=== PATIENT | female | born 1965 | race Caucasian/White ===

== ENCOUNTER 2020-02-01 12:36 | Emergency (ER) | payer MEDICAID, SELFPAY ==
--- NOTE | ~2020-02-01 | XR_ITS ---
EXAMINATION: XR chest 2V EXAM DATE: 02/01/2020 13:37 INDICATION: Dry cough. TECHNIQUE: Frontal and lateral projections of the chest obtained and reviewed. Comparison is made to prior examination from 2013. FINDINGS: The lungs are clear. There are no pleural effusions. The cardiomediastinal silhouette is within normal limits. There is no pneumothorax suspected. Some bridging lower thoracic endplate ost eophytes. IMPRESSION: No acute cardiopulmonary findings. Reviewed, dictated and finalized at location A.
[2020-02-01 12:43] VITALS: BP 145/84; PULSE 76; RESP 18; TEMP 36.7; O2SAT 100
--- NOTE | 2020-02-01 13:26 | ED.URI ---
HPI - URI/Sore Throat General Chief Complaint: Upper Respiratory Infection Stated Complaint: cough/ear pain pressure/sore throat Time Seen by Provider: 02/01/20 13:26 Source: patient Mode of arrival: ambulatory Limitations: no limitations History of Present Illness HPI Narrative: Ingrid Monae is a 55 yo female with a PMH of anxiety, migraines, hypothyroid, who comes to [facility] care with 3 days of dry cough, chest wall pain, right ear pain, feels generally unwell Related Data Home Medications Medication Instructions Recorded Confirmed cetirizine 10 mg tablet 10 mg PO DAILY 11/14/19 02/01/20 cholecalciferol (vitamin D3) 50 50 mcg PO DAILY 11/14/19 02/01/20 mcg (2,000 unit) capsule folic acid 1 mg tablet 1 mg PO DAILY 11/14/19 02/01/20 levothyroxine 25 mcg tablet 25 mcg PO DAILY 11/14/19 02/01/20 naproxen 500 mg tablet 500 mg PO BID 11/14/19 02/01/20 ranitidine HCl 150 mg tablet 150 mg PO DAILY 11/14/19 02/01/20 sumatriptan succinate 100 mg tablet See Rx Instructions PO .COMPLEX 11/14/19 02/01/20 atomoxetine 25 mg capsule 25 mg PO ONCE 11/22/19 02/01/20 Allergies Allergy/AdvReac Type Severity Reaction Status Date / Time buspirone Allergy Severe Tremors Verified 11/14/19 13:43 citalopram Allergy Intermediate UNKNOWN Verified 11/14/19 13:43 levofloxacin Allergy Intermediate PAIN IN Verified 11/14/19 13:43 TENDONS bupropion Allergy Unknown migraines Verified 11/14/19 13:43 codeine Allergy Unknown Unknown Verified 11/14/19 13:43 diphenhydramine Allergy Unknown hangover Verified 11/14/19 13:43 [From Unisom feeling (diphenhydramine)] doxycycline Allergy Unknown Unknown Verified 11/14/19 13:43 duloxetine Allergy Unknown unknown Verified 11/14/19 13:43 gabapentin Allergy Unknown Unknown Verified 11/14/19 13:43 haloperidol Allergy Unknown incoherent Verified 11/14/19 13:43 for a week nitrofurantoin Allergy Unknown Unknown Verified 11/14/19 13:43 pregabalin Allergy Unknown Unknown Verified 11/14/19 13:43 quetiapine Allergy Unknown Unknown Verified 11/14/19 13:31 escitalopram AdvReac Unknown tremors Verified 11/14/19 13:31 morphine AdvReac Unknown vomiting Verified 11/14/19 13:31 FLUOXETINE HCL Allergy Unknown unknown Uncoded 11/14/19 13:31 KETOROLAC TROMETHAMINE Allergy Unknown Unknown Uncoded 11/14/19 13:31 PAROXETINE HCL Allergy Unknown tremors Uncoded 11/14/19 13:31 SERTRALINE HCL Allergy Unknown Unknown Uncoded 11/14/19 13:31 Review of Systems Review of Systems: Narrative: CONSTITUTIONAL: Denies fever, chills, sweats. EYES: Denies visual changes, redness, discharge. ENT: Denies rhinorrhea, congestion, has sore throat, has right otalgia. CARDIOVASCULAR: Denies chest pain, palpitations, edema. RESPIRATORY: Denies dyspnea, wheezing, has dry cough GASTROINTESTINAL: Denies abdominal pain, nausea, vomiting, diarrhea. GENITOURINARY: Denies dysuria, hematuria, abnormal discharge SKIN: Denies rash or itching. NEUROLOGIC: Denies numbness, or focal weakness. PSYCHIATRIC: Denies anxiety or depression. [facility] Past Medical History Medical History Allergies Anxiety Arthritis Fibromyalgia Gallbladder disorder GERD (gastroesophageal reflux disease) Migraine Neuropathy Osteoarthritis Spinal stenosis Spondylosis Thyroid disorder Varicose veins of both lower extremities Surgical History Surgical History H/O knee surgery H/O tubal ligation History of carpal tunnel release Hx of cholecystectomy Family History Family History Grandparent Heart failure Social History Social History Smoking packs per day: 0.25 Smoking cigarettes per day: 5.0 Years smoked: 6 Smoking pack-years: 1.50 Smoking status: Current every day smoker Alcohol intake: never Substance use: never Gender identity (if
== END 2020-02-01 14:30 | disposition home or self-care (01) ==
PROVIDERS: Emergency Provider Nurse Practitioner; PCP Family Medicine
DX: R05 Cough (principal); H92.01 Otalgia, right ear; E03.9 Hypothyroidism, unspecified; F41.9 Anxiety disorder, unspecified; M19.90 Unspecified osteoarthritis, unspecified site; M79.7 Fibromyalgia; K21.9 Gastro-esophageal reflux disease without esophagitis; G62.9 Polyneuropathy, unspecified; E07.9 Disorder of thyroid, unspecified; F17.210 Nicotine dependence, cigarettes, uncomplicated
CPT/HCPCS: 71046; 99213; G0463

== ENCOUNTER 2020-11-15 12:01 | Observation (INO) | payer MEDICARE, MEDICAID, SELFPAY ==
[2020-11-15] VITALS (14 sets, daily range): BP systolic 119–157; BP diastolic 77–97; PULSE 78–112; RESP 15–22; TEMP 36.3–39.2; O2SAT 95–97; BMI 27.7
--- NOTE | ~2020-11-15 | US_ITS ---
EXAMINATION: US venous doppler LE EXAM DATE: 11/16/2020 09:09 INDICATION: Shortness of breath and elevated d-dimer. TECHNIQUE: Multiple grayscale, color flow and Doppler images of the lower extremity deep venous syste ms bilaterally were obtained and reviewed. There is no prior study for comparison. FINDINGS: Right side: The right common femoral, femoral and profunda veins demonstrate normal color flow, respi ratory variation, augmentation and compressibility. Compressibility, color flow confirmed within the right popliteal, posterior tibial, peroneal, and greater saphenous veins. Left side: The left common femoral, femoral and profunda veins demonstrate normal color flow, respira tory variation, augmentation and compressibility. Compressibility, color flow confirmed within the l eft popliteal, posterior tibial, peroneal, and greater saphenous veins. IMPRESSION: No lower extremity deep venous thrombosis bilaterally. Reviewed, dictated and finalized at location A.
--- NOTE | ~2020-11-15 | NM_ITS ---
EXAMINATION: NM pulmonary perfusion DATE: 11/16/2020 09:00 INDICATION: Shortness of breath. TECHNIQUE: 5.023 mCi Tc-99m MAA was administered intravenously for perfusion images. Scintigraphic i mages of the chest were obtained. COMPARISON: Chest single view 11/15/2020 FINDINGS: Perfusion images show small defects in left upper lobe and left lower lobe. IMPRESSION: 1. Pulmonary embolism absent (very low probability). Reviewed, dictated and finalized at location A.
--- NOTE | ~2020-11-15 | XR_ITS ---
XR pelvis 1-2V DATE: 11/17/2020 17:11 INDICATION: Bilateral hip pain TECHNIQUE: AP pelvis, one view COMPARISON: None FINDINGS: There is diffuse osteopenia. The pubic symphysis and sacroiliac joints are intact. Hip joint spaces are symmetric and relatively p reserved. No pelvic fracture or bone destruction is evident. No fracture or dislocation, avascular necrosis or bone destruction is noted at either hip. IMPRESSION: No significant abnormality Reviewed, dictated and finalized at location A. IMPRESSION: No significant abnormality
--- NOTE | ~2020-11-15 | XR_ITS ---
EXAMINATION: XR chest 2V EXAM DATE: 11/15/2020 13:52 INDICATION: Dyspnea, hives. Swelling of face. TECHNIQUE: Frontal and lateral projections of the chest obtained and reviewed. Comparison is made to prior examination from 02/01/2020. FINDINGS: The lungs are clear. There are no pleural effusions. The cardiomediastinal silhouette is within normal limits. There is no pneumothorax suspected. The bones and soft tissues are unremarkab le. IMPRESSION: No acute cardiopulmonary findings. Reviewed, dictated and finalized at location A.
--- NOTE | ~2020-11-15 | CT_ITS ---
EXAMINATION: CT facial bones wo con DATE: 11/17/2020 16:49 INDICATION: Facial edema. Frontal headache. TECHNIQUE: Computed tomography (CT) of the facial bones and maxillofacial region was performed withou t intravenous contrast. Automated exposure control and iterative reconstruction technique were employ ed. The dose-length product was 271.73 mGy-cm. COMPARISON: None. FINDINGS: The orbits are normal. There are old fracture deformities of the nasal bones. No acute frac ture. There is rightward deviation of the nasal septum. There is mild mucosal thickening in the maxil maki sinuses. There is a trace right mastoid effusion. There is moderate cervical spondylosis. IMPRESSION: 1. No acute fracture. Reviewed, dictated and finalized at location A. IMPRESSION: 1. No acute fracture.
--- NOTE | ~2020-11-15 | XR_ITS ---
EXAMINATION: XR chest PICC line INDICATION: PICC insertion TECHNIQUE: AP view of the chest is obtained. COMPARISON: 1347 hours FINDINGS: A right upper extremity PICC has been inserted which ends with its tip in the distal superi or vena cava. The lungs are free of acute opacities. There is no pleural effusion or pneumothorax. Th e cardiomediastinal silhouette is normal. IMPRESSION: 1. Right upper extremity PICC insertion, otherwise no change. Reviewed, dictated and finalized at location A.
--- NOTE | ~2020-11-15 | XR_ITS ---
XR ankle LT min 3V DATE: 11/17/2020 17:11 INDICATION: Left ankle pain; no injury TECHNIQUE: 3 views COMPARISON: None FINDINGS: Mild plantar and posterior calcaneal enthesopathy. Mild osteopenia. No fracture or dislocation of the ankle or disruption of the ankle mortise is evident. No periosteal reaction or bone destruction. IMPRESSION: Mild plantar and posterior calcaneal enthesopathy Reviewed, dictated and finalized at location A.
--- NOTE | ~2020-11-15 | CT_ITS ---
EXAMINATION: CT brain wo con DATE: 11/17/2020 16:48 INDICATION: Altered mental status. Headache. TECHNIQUE: Computed tomography (CT) of the head was performed without intravenous contrast. The mA wa s adjusted according to patient size. Iterative reconstruction technique was employed. The dose-lengt h product was 605.33 mGy-cm. COMPARISON: Head CT 02/02/2017 FINDINGS: There is no intracranial hemorrhage, acute infarction, or abnormal intracranial mass lesion . There are chronic areas of abnormal cortical morphology in the frontal lobes bilaterally. The ventr icles are normal in size. The orbits are normal. The paranasal sinuses are clear. The mastoid air carlos ls are normal. IMPRESSION: 1. 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 Consider brain MRI without and with contrast. Reviewed, dictated and finalized at location A. IMPRESSION: 1. 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 Consider brain MRI without and with contrast.
--- NOTE | 2020-11-15 12:12 | ECG_ITS ---
Measurements Intervals [place] Rate: 100 P: 44 VA: 148 QRS: 18 QRSD: 113 T: 21 QT: 353 QTc: 455 Interpretive Statements SINUS TACHYCARDIA INTRAVENTRICULAR CONDUCTION DELAY DELAYED PRECORDIAL R/S TRANSITION MINIMAL Q WAVES- INFERIOR LEADS BASELINE ARTIFACT- I, II, III, AVR, AVL, AVF, V1-V6 BORDERLINE ECG Electronically Signed On 11-15-2020 14:31:16 CDT by Lawrence Donovan D.O.
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
--- NOTE | 2020-11-15 12:22 | PC.NURSE ---
IV attempt x3 unsuccessful per this RN.
[2020-11-15] MEDS: ALBUTEROL SULFATE NEB 2.5 MG/0.5 ML INH 5 MG INHALATION (12:31)
[2020-11-15] MEDS: IPRATROPIUM BR 0.02% INH SOLN 0.5 MG/2.5 ML VIAL INHALATION (12:31)
[2020-11-15 12:36] LABS: Alveolar/Arterial O2 Gradient 32.7 mmHg; Carboxyhemoglobin 0.6 % THb (0-2.0); Fractional Inspired Oxygen 21 %; HCO3 ABG 19.1 mEq/l (22.0-26.0); Methemoglobin ABG 0.2 %THb (0-1.5); Oxygen Content ABG 17.3 %vol (16.0-22.0); Oxygen Saturation ABG 97.7 % (95.0-100.0); Oxyhemoglobin 96.4 % THb (90.0-100.0); PO2 ABG 88.7 mmHg (80.0-100.0); PO2 FiO2 Ratio Arterial Blood 4.22 %; Reduced Hemoglobin 2.8 %THb (0-5.0); Total Hemoglobin 12.7 g/dL (12.0-18.0)
[2020-11-15 12:38] LABS: Device ROOM AIR; Modified Allen's Test Pass; PCO2 ABG 23.7 mmHg (35.0-45.0); Site Drawn LEFT RADIAL; pH ABG 7.525 (7.350-7.450)
--- NOTE | 2020-11-15 12:42 | PC.NURSE ---
SHONNA Smith at bedside to attempt IV start and lab draw with ultrasound.
[2020-11-15 13:32] LABS: Basophils Percent Auto 0.2 % (0.2-1.2); Hematocrit 33.7 % (37.0-47.0); Hemoglobin 11.7 g/dL (12.0-15.0); Immature Granulocyte Absolute 0.31 K/mm3 (0.00-0.031); Immature Granulocyte Percent A 1.5 % (0-0.5); Lymphocytes Absolute Auto 0.86 K/mm3 (0.9-3.2); Lymphocytes Percent Auto 4.2 % (18.3-44.2); Mean Corpuscular HGB Conc 34.7 g/dl (32-36); Mean Corpuscular Hemoglobin 28.5 pg (26-34); Mean Platelet Volume 8.3 fl (7.4-10.4); Monocytes Absolute Auto 0.7 K/mm3 (0.1-0.6); Monocytes Percent Auto 3.6 % (2.6-8.5); Neutrophils Absolute Auto 18.6 K/mm3 (1.3-6.7); Neutrophils Percent Auto 90.5 % (45.5-73.1); Platelet Count Result 228 k/mm3 (150-375); Red Blood Count 4.11 M/mm3 (4.2-5.4); Red Cell Distribution Width 14.6 % (11.5-14.5); White Blood Count 20.5 K/mm3 (4.5-10.0)
--- NOTE | 2020-11-15 13:32 | PC.NURSE ---
Unable to get IV after several attempts with ultrasound.
[2020-11-15 13:41] LABS: INR 1.2; Prothrombin Time 16.2 Seconds (11.1-14.7)
[2020-11-15 13:42] LABS: Partial Thromboplastin Time 32.4 SECONDS (22.3-36.8)
[2020-11-15 13:44] LABS: D Dimer 1.99 ug/mL (<0.48); Lactic Acid Reflex 0.9 mmol/L (0.7-2.1); Ovalocytes 1+ (NORMAL); Platelet Estimate Adequate (Adequate)
[2020-11-15 13:56] LABS: NT Pro B Type Natriuretic Pept 472 PG/ML (5-100); Troponin I < 0.012 ng/mL (0.000-0.034)
[2020-11-15 14:01] LABS: Alanine Aminotransferase 13 U/L (4-35); Albumin Level 3.8 g/dL (3.5-5.1); Alkaline Phosphatase 89 U/L (38-126); Anion Gap 8 mmol/L (8-16); Aspartate Amino Transferase 16 U/L (14-36); Bilirubin,Total 0.8 mg/dL (0.2-1.3); Blood Urea Nitrogen 14 mg/dL (7-17); Calcium 9.4 mg/dL (8.4-10.2); Carbon Dioxide 22 mmol/L (22-30); Chloride 103 mmol/L (98-107); Estimated CRCL calculation 65 ml/min; Estimated Glomerular Filt Rate > 60; Glucose 136 mg/dL (65-105); Potassium 2.8 mmol/L (3.4-5.0); Sodium 133 mmol/L (137-145)
--- NOTE | 2020-11-15 14:02 | PC.NURSE ---
supervisor concrete stone finishing contacted [facility] to come and initiate PICC line as pt is difficult stick.
--- NOTE | 2020-11-15 14:31 | PC.NURSE ---
[facility] at bedside for PICC line placement
[2020-11-15] MEDS: POTASSIUM CHLORIDE 20 MEQ TABLET 40 MEQ PO (15:18)
[2020-11-15] MEDS: FAMOTIDINE 20 MG/2 ML VIAL IV PUSH (15:18)
[2020-11-15] MEDS: methylPREDNISolone SOD SUCC 125 MG VIAL IV PUSH (15:18)
--- NOTE | 2020-11-15 15:48 | PC.NURSE ---
Liss from CT calls, states that she is unable to do the CTA due to the PICC line peaking and not taking the contrast . States was going to initiate another line, but pt refuses further testing until she gets ativan.
[2020-11-15] MEDS: LORazepam INJ (*CRX) 2 MG/ML VIAL 0.5 MG IV PUSH (15:59)
--- NOTE | 2020-11-15 16:31 | PC.NURSE ---
Admission orders received. Awaiting bed assignment.
[2020-11-15] MEDS: ENOXAPARIN 80 MG/0.8 ML SYRINGE 73 MG SUB-Q (16:42)
--- NOTE | 2020-11-15 17:42 | PC.NURSE ---
Weight verified per bedscale. Dr. Loo made aware. Pt's face appears to have decreased in swelling. Pt awakens easily, is oriented to place but says things like you're trying to trick me and it's a conspiracy .
--- NOTE | 2020-11-15 18:21 | PC.NURSE ---
First set of blood cultures obtained. Continue to await bed assignment. Pt is refusing straight cath urine collection.
--- NOTE | 2020-11-15 18:48 | PC.NURSE ---
2nd set of blood cultures and lactic collected per PICC line.
--- NOTE | 2020-11-15 19:00 | PC.NURSE ---
RN informed during report pt. has been refusing straight catheter and refusing to provide urine sample. Pt. told previous RN that I know what you are up to and I won't allow it.
--- NOTE | 2020-11-15 19:00 | PC.NURSE ---
Assumed care of pt. at this time. Report from SHONNA Villalta
[2020-11-15 19:05] LABS: Lactic Acid Reflex 1.1 mmol/L (0.7-2.1)
[2020-11-15] MEDS: ACETAMINOPHEN 325 MG TABLET 650 MG PO (20:07)
--- NOTE | 2020-11-15 21:59 | ADMGEN ---
This patient, Ingrid Monae, was admitted to 2 Medical Room 259-. Patient/family oriented to hospital policies and general routines including ID bracelet, bed and alarms, visiting hours, pain management, procedures, bathroom and other care routines, personal items, smoking policy, room service/diet, and visiting hours. Information on how to activate the Rapid Response Team has been discussed. Patient/Family are encouraged to report perceived risks to care and to ask questions if they do not understand what they are told or what they should do.
[2020-11-15] MEDS: CENTRAL LINE FLUSH 10 ML IV PUSH (22:45)
[2020-11-15] MEDS: LACTATED RINGERS 1,000 ML 125 ML IV CONT (22:45)
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
[2020-11-16] VITALS (14 sets, daily range): BP systolic 104–122; BP diastolic 71–81; PULSE 62–89; RESP 18–22; TEMP 36.1–37; O2SAT 97–100
[2020-11-16] MEDS: methylPREDNISolone SOD SUCC 125 MG VIAL 60 MG IV PUSH ×2 (00:47→05:08)
[2020-11-16 02:15] LABS: Anion Gap 9 mmol/L (8-16); Blood Urea Nitrogen 19 mg/dL (7-17); Calcium 9.1 mg/dL (8.4-10.2); Carbon Dioxide 23 mmol/L (22-30); Chloride 105 mmol/L (98-107); Estimated CRCL calculation 55 ml/min; Estimated Glomerular Filt Rate 58; Glucose 280 mg/dL (65-105); Potassium 3.3 mmol/L (3.4-5.0); Sodium 137 mmol/L (137-145)
[2020-11-16] MEDS: IPRATROPIUM BR 0.02% INH SOLN 0.5 MG/2.5 ML VIAL INHALATION ×2 (02:40→10:06)
[2020-11-16] MEDS: ALBUTEROL SULFATE NEB 2.5 MG/0.5 ML INH INHALATION ×2 (02:40→10:06)
[2020-11-16 05:05] LABS: Basophils Percent Auto 0.1 % (0.2-1.2); Hematocrit 33.3 % (37.0-47.0); Hemoglobin 11.1 g/dL (12.0-15.0); Immature Granulocyte Absolute 0.16 K/mm3 (0.00-0.031); Immature Granulocyte Percent A 1.2 % (0-0.5); Lymphocytes Absolute Auto 0.63 K/mm3 (0.9-3.2); Lymphocytes Percent Auto 4.8 % (18.3-44.2); Mean Corpuscular HGB Conc 33.3 g/dl (32-36); Mean Corpuscular Volume 83.9 fl (80-100); Mean Platelet Volume 9.3 fl (7.4-10.4); Monocytes Absolute Auto 0.5 K/mm3 (0.1-0.6); Monocytes Percent Auto 3.7 % (2.6-8.5); Neutrophils Absolute Auto 11.8 K/mm3 (1.3-6.7); Neutrophils Percent Auto 90.2 % (45.5-73.1); Platelet Count Result 235 k/mm3 (150-375); Red Blood Count 3.97 M/mm3 (4.2-5.4); Red Cell Distribution Width 14.5 % (11.5-14.5); White Blood Count 13.1 K/mm3 (4.5-10.0)
[2020-11-16] MEDS: LEVOTHYROXINE SODIUM 25 MCG TABLET PO (05:07)
[2020-11-16] MEDS: CENTRAL LINE FLUSH 10 ML IV PUSH ×2 (05:09→20:22)
[2020-11-16 05:27] LABS: Anion Gap 7 mmol/L (8-16); Blood Urea Nitrogen 21 mg/dL (7-17); Calcium 9.6 mg/dL (8.4-10.2); Carbon Dioxide 25 mmol/L (22-30); Chloride 106 mmol/L (98-107); Estimated CRCL calculation 55 ml/min; Estimated Glomerular Filt Rate 58; Glucose 196 mg/dL (65-105); Magnesium 2.2 mg/dL (1.6-2.3); Potassium 3.5 mmol/L (3.4-5.0); Sodium 138 mmol/L (137-145)
[2020-11-16 05:50] LABS: Add Urine Microscopic? YES; Appearance Urine Cloudy (Clear); Bacteria Urine Trace /hpf; Bilirubin Urine Negative (Negative); Blood Urine Negative (Negative); Color Urine Yellow (Yellow); Glucose Urine UA Negative (Negative); Ketones Urine Negative (Negative); Leukocyte Esterase Ur Trace LEU/UL (NEGATIVE); Mucus Urine Few /lpf; Nitrate Urine Negative (Negative); Protein Urine 2+ mg/dL (Negative); RBC Urine 0-2 /hpf (0-2); Specific Grav Ur 1.028 (1.001-1.035); Squamous Epithelial Cell Urine Few /hpf (Few); Urobilinogen Urine Negative mg/dL (<2.0); WBC Urine 0-3 /hpf (0-3)
[2020-11-16 06:04] LABS: Barbiturate Screen Urine Negative (Negative); Benzodiazepines Screen Urine Negative (Negative)
[2020-11-16 06:10] LABS: Cannabinoid Screen Urine Positive (Negative); Cocaine Screen Urine Negative (Negative); Methadone Screen Urine Negative (Negative); Opiate Screen Urine Negative (Negative); Phencyclidine Screen Urine Negative (Negative)
[2020-11-16 06:22] LABS: Amphetamine Screen Urine Positive (Negative)
[2020-11-16 06:40] LABS: Thyroid Stimulating Hormone Reflex 0.241 uIU/mL (0.465-4.68)
[2020-11-16 07:26] LABS: Free T4 Free Thyroxine Reflex 1.25 ng/dL (0.78-2.19)
[2020-11-16] MEDS: CHOLECALCIFEROL 1,000 UNITS TABLET 2000 UNITS PO (10:02)
[2020-11-16] MEDS: FAMOTIDINE 20 MG TABLET PO (10:03)
[2020-11-16] MEDS: POLYMYXIN/TRIMETHOPRIM OPHTH 10 ML DROPS 1 DROP EACH EYE ×2 (10:03→20:21)
[2020-11-16] MEDS: LORATADINE 10 MG TABLET PO (10:03)
[2020-11-16] MEDS: NAPROXEN 500 MG TABLET PO ×2 (10:03→20:21)
[2020-11-16] MEDS: FOLIC ACID 1 MG TABLET PO (10:03)
[2020-11-16] MEDS: TOPIRAMATE 25 MG TABLET 50 MG PO ×2 (10:04→20:21)
[2020-11-16] MEDS: LACTATED RINGERS 1,000 ML 125 ML IV CONT ×2 (11:26→20:27)
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
[2020-11-16] MEDS: ALPRAZolam (*CRX) 0.5 MG TABLET PO ×2 (13:10→20:27)
[2020-11-16] MEDS: POTASSIUM CHLORIDE 20 MEQ TABLET PO (14:56)
[2020-11-16] MEDS: ENOXAPARIN 40 MG/0.4 ML SYRINGE SUB-Q (17:29)
[2020-11-16] MEDS: hydrOXYzine HCL 25 MG TABLET PO (17:36)
[2020-11-16] MEDS: ZOLPIDEM TARTRATE (*CRX) 5 MG TABLET 10 MG PO (22:44)
[2020-11-17] VITALS (10 sets, daily range): BP systolic 125–128; BP diastolic 64–84; PULSE 65–78; RESP 16–22; TEMP 36.1–36.4; O2SAT 97–100
[2020-11-17] MEDS: CENTRAL LINE FLUSH 20 ML IV PUSH (04:33)
[2020-11-17 04:40] LABS: Basophils Percent Auto 0.2 % (0.2-1.2); Hematocrit 31.9 % (37.0-47.0); Hemoglobin 10.7 g/dL (12.0-15.0); Immature Granulocyte Absolute 0.17 K/mm3 (0.00-0.031); Lymphocytes Absolute Auto 1.08 K/mm3 (0.9-3.2); Lymphocytes Percent Auto 6.4 % (18.3-44.2); Mean Corpuscular HGB Conc 33.5 g/dl (32-36); Mean Corpuscular Hemoglobin 28.3 pg (26-34); Mean Corpuscular Volume 84.4 fl (80-100); Mean Platelet Volume 9.5 fl (7.4-10.4); Monocytes Absolute Auto 0.5 K/mm3 (0.1-0.6); Monocytes Percent Auto 3.1 % (2.6-8.5); Neutrophils Absolute Auto 15.1 K/mm3 (1.3-6.7); Neutrophils Percent Auto 89.3 % (45.5-73.1); Platelet Count Result 290 k/mm3 (150-375); Red Blood Count 3.78 M/mm3 (4.2-5.4); Red Cell Distribution Width 15.1 % (11.5-14.5); White Blood Count 16.9 K/mm3 (4.5-10.0)
[2020-11-17 04:51] LABS: Alanine Aminotransferase 11 U/L (4-35); Alkaline Phosphatase 66 U/L (38-126); Anion Gap 3 mmol/L (8-16); Aspartate Amino Transferase 13 U/L (14-36); Bilirubin,Total 0.2 mg/dL (0.2-1.3); Blood Urea Nitrogen 24 mg/dL (7-17); Calcium 9.1 mg/dL (8.4-10.2); Carbon Dioxide 27 mmol/L (22-30); Chloride 109 mmol/L (98-107); Estimated CRCL calculation 61 ml/min; Estimated Glomerular Filt Rate > 60; Glucose 115 mg/dL (65-105); Potassium 3.3 mmol/L (3.4-5.0); Sodium 139 mmol/L (137-145)
--- NOTE | 2020-11-17 05:02 | PHAR ---
PHARMACY VERIFIED: *USE FROM HOME* CONJUGATED EST/MEDROXY(PREMPRO) 0.625/2.5 MG TAKE ONE TABLET BY MOUTH ONCE DAILY
[2020-11-17] MEDS: LACTATED RINGERS 1,000 ML 125 ML IV CONT ×2 (05:22→16:25)
[2020-11-17] MEDS: LIDOCAINE 5% PATCH 1 PATCH TRANSDERM (05:34)
[2020-11-17] MEDS: CENTRAL LINE FLUSH 10 ML IV PUSH ×3 (05:37→20:37)
[2020-11-17] MEDS: LEVOTHYROXINE SODIUM 25 MCG TABLET PO (05:38)
[2020-11-17 08:08] LABS: Hemoglobin A1C 5.1 % (<5.7)
[2020-11-17 08:27] LABS: CRP 16.8 mg/dL (<1.0)
[2020-11-17] MEDS: FOLIC ACID 1 MG TABLET PO (09:36)
[2020-11-17] MEDS: POTASSIUM CHLORIDE 20 MEQ TABLET 40 MEQ PO (09:36)
[2020-11-17] MEDS: LORATADINE 10 MG TABLET PO (09:36)
[2020-11-17] MEDS: predniSONE 20 MG TABLET 60 MG PO (09:36)
[2020-11-17] MEDS: NAPROXEN 500 MG TABLET PO ×2 (09:37→20:36)
[2020-11-17] MEDS: CHOLECALCIFEROL 1,000 UNITS TABLET 2000 UNITS PO (09:37)
[2020-11-17] MEDS: POLYMYXIN/TRIMETHOPRIM OPHTH 10 ML DROPS 1 DROP EACH EYE ×2 (09:37→20:35)
[2020-11-17] MEDS: FAMOTIDINE 20 MG TABLET PO (09:37)
[2020-11-17] MEDS: TOPIRAMATE 25 MG TABLET 50 MG PO ×2 (09:37→20:36)
[2020-11-17] MEDS: ALPRAZolam (*CRX) 0.5 MG TABLET PO (09:40)
[2020-11-17 14:11] LABS: Procalcitonin 1.2 ng/mL
--- NOTE | 2020-11-17 14:50 | WPDINFPN2 ---
Progress Note: A&P Assessment and Plan (1) Febrile illness: Code(s): R50.9 - Fever, unspecified Status: Acute Assessment and Plan: Fever, no localizing signs/symptoms/labs of note. May be viral REC No empiric antibiotics, BCs in process. Call if Qs or + micro Subjective Date/time seen: 11/17/20 14:50 Objective Data Vital Signs Vital Signs: Vital Signs - 24 hr 11/16/20 16:00 11/16/20 17:37 11/16/20 20:00 Temperature Pulse Rate 78 80 Respiratory Rate Blood Pressure 120/73 Pulse Oximetry 11/16/20 21:09 11/17/20 00:00 11/17/20 04:00 Temperature 36.1 C L Pulse Rate 62 76 65 Respiratory Rate 22 H Blood Pressure 122/81 Pulse Oximetry 100 11/17/20 05:21 11/17/20 08:00 11/17/20 12:00 Temperature 36.1 C L Pulse Rate 74 78 68 Respiratory Rate 22 H Blood Pressure 125/84 Pulse Oximetry 100 Intake/Output Intake/Output: Intake & Output 11/14/20 11/15/20 11/16/20 11/17/20 23:59 23:59 23:59 23:59 Intake Total 50 3660 1340 Output Total 1600 700 Balance 50 2060 640 Meds/Results Medications: Active Medications Generic Name Dose Route Start Last Admin Trade Name Freq PRN Reason Stop Dose Admin Albuterol 2.5 mg 11/16/20 13:11 Albuterol Sulfate Neb 2.5 Mg/0.5 Ml Inh INHALATION Q6HRT PRN Shortness Of Breath Or Wheezing Alprazolam 0.5 mg 11/16/20 12:32 11/17/20 09:40 Alprazolam (*Crx) 0.5 Mg Tablet PO 0.5 mg BID PRN Administration Anxiety Enoxaparin Sodium 40 mg 11/16/20 17:00 11/16/20 17:29 Enoxaparin 40 Mg/0.4 Ml Syringe SUB-Q 40 mg Q24H JEANETTE Administration Famotidine 20 mg 11/16/20 09:00 11/17/20 09:37 Famotidine 20 Mg Tablet PO 12/16/20 09:01 20 mg DAILY JEANETTE Administration Folic Acid 1 mg 11/16/20 09:00 11/17/20 09:36 Folic Acid 1 Mg Tablet PO 1 mg DAILY JEANETTE Administration Guaifenesin 600 mg 11/15/20 23:19 Guaifenesin 12 Hr 600 Mg Tabcr PO Q12HR PRN cough Hydroxyzine HCl 25 mg 11/16/20 12:33 11/16/20 17:36 Hydroxyzine Hcl 25 Mg Tablet PO 25 mg Q6H PRN Administration Anxiety Lactated Ringer's 1,000 mls @ 125 mls/hr 11/15/20 16:35 11/17/20 09:37 Lr - Lactated Ringers Iv IV CONT Not Given .Q8H JEANETTE Ipratropium [place] 0.5 mg 11/16/20 13:11 Ipratropium Br 0.02% Inh Soln 0.5 Mg/2.5 Ml Vial INHALATION Q6HRT PRN Shortness Of Breath Or Wheezing Levothyroxine Sodium 25 mcg 11/16/20 06:30 11/17/20 05:38 Levothyroxine Sodium 25 Mcg Tablet PO 25 mcg DAILY@0630 JEANETTE Administration Lidocaine 1 patch 11/17/20 05:20 11/17/20 05:34 Lidocaine 5% Patch TRANSDERM 1 patch DAILY JEANETTE Administration Loratadine 10 mg 11/16/20 09:00 11/17/20 09:36 Loratadine 10 Mg Tablet PO 12/16/20 09:01 10 mg DAILY JEANETTE Administration Naproxen 500 mg 11/16/20 09:00 11/17/20 09:37 Naproxen 500 Mg Tablet PO 500 mg Q12HR JEANETTE Administration Polymyxin/Trimethoprim Sulfate 1 drop 11/16/20 09:00 11/17/20 09:37 Polymyxin/Trimethoprim Ophth 10 Ml Drops EACH EYE 1 drop Q12HR JEANETTE Administration Prednisone 60 mg 11/17/20 08:00 11/17/20 09:36 Prednisone 20 Mg Tablet PO 60 mg DAILY@0800 JEANETTE Administration Sodium Chloride 10 ml 11/15/20 22:00 11/17/20 05:37 Central Line Flush IV PUSH 10 ml Q8HR JEANETTE Administration Sodium Chloride 10 ml 11/15/20 15:34 Central Line Flush IV PUSH PRN PRN with TPN bag changes Sodium Chloride 20 ml 11/15/20 15:34 11/17/20 04:33 Central Line Flush IV PUSH 20 ml PRN PRN Administration after blood draws Sumatriptan Succinate 100 mg 11/15/20 23:20 Sumatriptan Succinate 25 Mg Tablet PO PRN PRN Migraine Headache Topiramate 50 mg 11/16/20 09:00 11/17/20 09:37 Topiramate 25 Mg Tablet PO 50 mg Q12HR JEANETTE Administration Vitamin D 2,000 units 11/16/20 09:00 11/17/20 09:37 Cholecalciferol 1,000 Units Tablet PO
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
[2020-11-17] MEDS: ALPRAZolam (*CRX) 0.5 MG TABLET 1 MG PO (16:24)
[2020-11-17] MEDS: ENOXAPARIN 40 MG/0.4 ML SYRINGE SUB-Q (16:24)
--- NOTE | 2020-11-17 19:53 | CONS_ITS ---
DATE OF CONSULTATION: 11/17/2020 REASON FOR CONSULTATION: Fever. HISTORY OF PRESENT ILLNESS: A 55-year-old female, who can provide limited detailed history. She is unable to keep her mind on topic. She was admitted to the hospital on November 15, with lower extremity weakness that she cannot describe any further. She was evaluated, found to have leukocytosis. Has been given ceftriaxone and piperacillin at various times. Also has been given steroids while here. She denies fever, chills, or sweats prior to admission. She was febrile here. No antibiotics. No immunosuppressants at home. ALLERGIES: NUMEROUS, UNKNOWN REACTIONS TO NITROFURANTOIN, LEVOFLOXACIN, DOXYCYCLINE. PRESENT MEDICATIONS: Noted above. HABITS: Polysubstance abuse. She tells me she has quit smoking about 10 days ago. PAST MEDICAL HISTORY: Migraine headaches, carries diagnosis of ADHD, anxiety, asthma, fibromyalgia, GERD, hypothyroidism, spinal stenosis with chronic back pain. Spondylosis, thyroid disease, varicose veins, knee surgery, BTL, carpal tunnel, cholecystectomy. REVIEW OF SYSTEMS: Limited by the patient's thought processes. 14-point review otherwise appears negative. FAMILY HISTORY: Not pertinent to her present illness. SOCIAL HISTORY: She does not work outside the home. 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 PHYSICAL EXAMINATION: GENERAL: This is a middle-aged female, who appears older than actual age. No acute distress. VITAL SIGNS: on the evening of admission has since defervesced 125/84, 74, 22. SKIN: Warm and dry. No rashes. She has erythema over the maxilla, not suggestive of lupus. EENT: The conjunctivae are normal. Pupils equal, round, reactive. The oropharynx oral mucosa normal. NECK: No masses, thyromegaly, adenopathy. LUNGS: Clear to auscultation and percussion. CARDIAC: Regular rate and rhythm. No murmur, gallop, or rub. ABDOMEN: Nontender, nondistended. No masses. No organomegaly. EXTREMITIES: No clubbing, cyanosis, edema. She has venous varicosities. No DVT. LABORATORY DATA: Blood cultures, no growth. 2 sets from the th, 2 sets from the . White count 20.5 on admission, now 16.9, hemoglobin 10.7, platelets of 290. Differential with a mild left shift. Blood gases 7.53, 24, 89, 19, 98% on room air. Chemistries with mildly elevated BUN, glucose 115, otherwise normal. CRP 16.8, BNP 472. Urinalysis, not evident infection. Drug screen, amphetamines, cannabinoids. RADIOLOGY: Chest x-ray, no active disease. ASSESSMENT: 1. Lower extremity weakness. She has normal motor exam today. 2. Febrile illness, shortly after admission, abrupt viral syndrome. Clinical evaluation as above does not indicate focal or systemic source otherwise. 3. Polysubstance abuse. 4. Migraine headaches. RECOMMENDATIONS: 1. No empiric antibacterials. 2. Multiple cultures in process. Nothing else to suggest at this time in terms of testing. 3. Supportive care. Thank you very much for asking me to see her. Please call if positive microbiology or other questions. KINZA PULLIAM M.D. CANE PUSHER CANE PUSHER D I MT: Ashley
[2020-11-17] MEDS: traMADol HCL (*CRX) 25 MG TABLET PO (20:34)
[2020-11-17] MEDS: ZOLPIDEM TARTRATE (*CRX) 5 MG TABLET 10 MG PO (20:35)
[2020-11-18] VITALS: PULSE 59
[2020-11-18 04:00] VITALS: PULSE 61
[2020-11-18 05:13] VITALS: BP 117/72; PULSE 60; RESP 22; TEMP 36.4; O2SAT 99
[2020-11-18 05:49] LABS: Basophils Percent Auto 0.1 % (0.2-1.2); Hematocrit 29.1 % (37.0-47.0); Hemoglobin 9.6 g/dL (12.0-15.0); Immature Granulocyte Absolute 0.04 K/mm3 (0.00-0.031); Immature Granulocyte Percent A 0.4 % (0-0.5); Lymphocytes Absolute Auto 2.25 K/mm3 (0.9-3.2); Lymphocytes Percent Auto 24.3 % (18.3-44.2); Mean Corpuscular Hemoglobin 28.4 pg (26-34); Mean Corpuscular Volume 86.1 fl (80-100); Mean Platelet Volume 9.5 fl (7.4-10.4); Monocytes Absolute Auto 0.6 K/mm3 (0.1-0.6); Monocytes Percent Auto 6.7 % (2.6-8.5); Neutrophils Absolute Auto 6.4 K/mm3 (1.3-6.7); Neutrophils Percent Auto 68.5 % (45.5-73.1); Platelet Count Result 242 k/mm3 (150-375); Red Blood Count 3.38 M/mm3 (4.2-5.4); Red Cell Distribution Width 15.3 % (11.5-14.5); White Blood Count 9.3 K/mm3 (4.5-10.0)
[2020-11-18 06:02] LABS: Anion Gap 4 mmol/L (8-16); Blood Urea Nitrogen 24 mg/dL (7-17); CRP 5.9 mg/dL (<1.0); Calcium 8.9 mg/dL (8.4-10.2); Carbon Dioxide 26 mmol/L (22-30); Chloride 110 mmol/L (98-107); Estimated CRCL calculation 68 ml/min; Estimated Glomerular Filt Rate > 60; Glucose 99 mg/dL (65-105); Potassium 3.6 mmol/L (3.4-5.0); Sodium 140 mmol/L (137-145)
[2020-11-18] MEDS: LACTATED RINGERS 1,000 ML 125 ML IV CONT (06:23)
[2020-11-18] MEDS: ALPRAZolam (*CRX) 0.5 MG TABLET 1 MG PO ×2 (06:28→20:58)
[2020-11-18] MEDS: CENTRAL LINE FLUSH 10 ML IV PUSH (06:30)
[2020-11-18] MEDS: LEVOTHYROXINE SODIUM 25 MCG TABLET PO (06:30)
[2020-11-18 08:00] VITALS: PULSE 53
[2020-11-18] MEDS: TOPIRAMATE 25 MG TABLET 50 MG PO (08:50)
[2020-11-18] MEDS: POLYMYXIN/TRIMETHOPRIM OPHTH 10 ML DROPS 1 DROP EACH EYE (08:50)
[2020-11-18] MEDS: LIDOCAINE 5% PATCH 1 PATCH TRANSDERM (08:50)
[2020-11-18] MEDS: FOLIC ACID 1 MG TABLET PO (08:50)
[2020-11-18] MEDS: FAMOTIDINE 20 MG TABLET PO (08:50)
[2020-11-18] MEDS: LORATADINE 10 MG TABLET PO (08:51)
[2020-11-18] MEDS: NAPROXEN 500 MG TABLET PO (08:51)
[2020-11-18] MEDS: CHOLECALCIFEROL 1,000 UNITS TABLET 2000 UNITS PO (08:51)
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
[2020-11-18 20:00] VITALS: BP 141/85; PULSE 64; RESP 18; TEMP 36.5; O2SAT 100
--- NOTE | 2020-11-18 22:36 | PC.NURSE ---
[facility]. taken out via w/c by pct. belongings with patient.
--- NOTE | 2020-11-24 08:19 | PC.NURSE ---
Blood cx are negative.
== END 2020-11-18 22:00 | disposition home or self-care (01) ==
LOC: ANHED 16:31 → ANH2MED 23:45
PROVIDERS: Nurse Practitioner; Physician Assistant; Admitting Provider Internal Medicine; Emergency Provider Emergency Medicine; Visit Provider Physician Assistant
DX: R06.02 Shortness of breath (principal); R50.9 Fever, unspecified; R60.0 Localized edema; R79.89 Other specified abnormal findings of blood chemistry; E03.9 Hypothyroidism, unspecified; F41.9 Anxiety disorder, unspecified; F15.10 Other stimulant abuse, uncomplicated; F17.210 Nicotine dependence, cigarettes, uncomplicated; J45.909 Unspecified asthma, uncomplicated; Z79.899 Other long term (current) drug therapy
CPT/HCPCS: 36415; 36569; 36600; 70450; 70486; 71046; 72170; 73610; 78580; 80048; 80053; 80307; 81001; 82375; 82805; 83036; 83050; 83605; 83735; 83880; 84145; 84439; 84443; 84480; 84484; 85025; 85380; 85610; 85730; 86140; 87040; 93005; 93970; 94640; 96361; 96365; 96367; 96372; 96375; 96376; 99285; A9270; A9540; C1751; G0378; J0696; J1650; J2060; J2543; J2930; J7120; J7512